=== PATIENT | male | born 1960 | race Caucasian/White ===

== ENCOUNTER 2019-04-12 08:25 | Emergency (ER) | payer OTHER ==
[~2019-04-12] VITALS: Ht 175.3 cm; Wt 65.9 kg
[2019-04-12] MEDS ORDERED: CYCLOBENZAPRINE 10 MG TAB PO ONE (09:00)
[2019-04-12] MEDS ORDERED: LIDOCAINE 5% (LIDODERM) PATCH TD ONE (09:00)
[2019-04-12] MEDS ORDERED: KETOROLAC 60 MG/2 ML VIAL (J1885) IM ONE (09:00)
[2019-04-12 09:46] LABS: BASO % 0.3 % (0.0-1.0); EOS % 0.2 % (0.0-3.0); HEMATOCRIT 40.3 % (42.0-52.0); HEMOGLOBIN 13.6 g/dl (13.5-17.5); LYMPH # 1.7 10^3/uL (1.5-5.0); LYMPH % 18.8 % (24.0-44.0); MEAN CORPUSCULAR HEMOGLOBIN 33.5 pg (27.0-33.0); MEAN CORPUSCULAR HGB CONC 33.7 g/dl (32.0-36.5); MEAN CORPUSCULAR VOLUME 99.3 fl (80.0-96.0); MONO % 11.4 % (0.0-5.0); NEUTROPHILS # 6.1 10^3/uL (1.5-8.5); PLATELET COUNT, AUTOMATED 279 10^3/uL (150-450); RED BLOOD COUNT 4.06 10^6/uL (4.30-6.10); WHITE BLOOD COUNT 8.8 10^3/uL (4.0-10.0)
[2019-04-12] MEDS ORDERED: diazePAM 5 MG TAB PO ONE (11:00)
[2019-04-12] MEDS ORDERED: CYCL10TA PO (11:44)
[2019-04-12 11:58] VITALS: BP 134/81
[2019-04-12] MEDS ORDERED: **NOTE PATIENT COMMENT** MISC XX SCH (21:00)
== END 2019-04-12 11:59 | disposition home or self-care (01) ==
LOC: M ED 08:25
DX: M62.830 Muscle spasm of back (principal); M54.32 Sciatica, left side; I10 Essential (primary) hypertension; F17.218 Nicotine dependence, cigarettes, with other nicotine-induced disorders
CPT/HCPCS: 80047; 82550; 83735; 85025; 96374; 99283; J1885

== ENCOUNTER 2019-10-08 11:30 | Emergency (ER) | payer OTHER ==
[~2019-10-08 11:30] MED LIST: CYCL-707 PO
== END 2019-10-08 11:33 | disposition home or self-care (01) ==
LOC: M ED 11:30
DX: K04.7 Periapical abscess without sinus (principal); I10 Essential (primary) hypertension; F17.210 Nicotine dependence, cigarettes, uncomplicated; Z79.1 Long term (current) use of non-steroidal anti-inflammatories (NSAID); Z79.899 Other long term (current) drug therapy